=== PATIENT | female | born 1965 | race Caucasian/White ===

== ENCOUNTER 2017-02-16 10:55 | Observation (INO) | payer OTHER, MEDICAID ==
[2017-02-16] MEDS ORDERED: OXYMETAZOLINE 30 ML NASAL SPRAY EACHNARE ONE (11:14)
[2017-02-16] MEDS ORDERED: LR 1,000 ML IV ONE (11:25)
[2017-02-16] MEDS ORDERED: BACITRACIN ZINC 14.2 GM OINTTUBE TP ONE (12:02)
[2017-02-16] MEDS ORDERED: LIDO/EPI 1% **Not for Epidural 20 ML MDV ONE (12:03)
[2017-02-16] MEDS ORDERED: OXYMETAZOLINE 30 ML NASAL SPRAY ONE (12:03)
[2017-02-16] MEDS ORDERED: BUPIVACAINE/EPI 0.25% 30 ML SDV ONE (12:04)
[2017-02-16] MEDS ORDERED: MIDAZOLAM 2 MG/2 ML VIAL IVP ONE (12:16)
--- NOTE | 2017-02-16 12:19 | PDANEPAE ---
ANE History of Present Illness MARY JO s/f UPPP, septoplasty, SMIRT ANE Past Medical History - Cardiovascular History Hx Hypertension: Yes Hx Arrhythmias: No Hx Chest Pain: No Hx Coronary Artery / Peripheral Vascular Disease: No Hx CHF / Valvular Disease: No Hx Palpitations: No Cardiovascular History Comment: mi 02/2015. dvt following knee surgery - Pulmonary History Hx Asthma/Reactive Airway Disease: Yes Hx Recent Upper Respiratory Infection: No Hx Oxygen in Use at Home: No O2 in Use at Home (L/minute): 2l at noc Hx Sleep Apnea: Yes Sleep Apnea Screening Result - Last Documented: Positive Pulmonary History Comment: asthma recent december 2016 ED visit. anaphylactic allergies. mary jo positive- uses o2- unable to use cpap d/t allergies. pe following knee surgery - Neurologic History Hx Cerebrovascular Accident: No Hx Seizures: No Hx Dementia: No - Endocrine History Hx Diabetes: Yes Endocrine History Comment: type 2. hypothyroidism - Renal History Hx Renal Disorders: No - Liver History Hx Hepatic Disorders: No - Neurological & Psychiatric Hx Hx Neurological and Psychiatric Disorders: Yes Neurological / Psychiatric History Comment: anxiety. depression. poss. bipolar - Cancer History Hx Cancer: No - Congenital Disorder History Hx Congenital Disorders: No - GI History Hx Gastrointestinal Disorders: Yes Gastrointestinal History Comment: GERD - Other Health History Other Health History: wears glasses. multiple hospitalizations for anaphylaxis from allergies last one being 12/31-01/03/16 - Chronic Pain History Chronic Pain: Yes (left knee) - Surgical History Prior Surgeries: left tka 2013. jaw surgery. sinus surgery. x2. irasema. uterine ablation. anal fissure. knee surgery x6. back surgery l5-s1 x2 ANE Review of Systems - Exercise capacity METS (RN): 3 METS (ekg okay) ANE Patient History - Allergies Allergies/Adverse Reactions: chlorhexidine Allergy (Severe, Verified 01/26/17 15:32) TESTED ALLERGIC silicone [Silicone] Allergy (Severe, Verified 01/26/17 15:32) FACE SWELLING/ITCY/REDNESS spinach Allergy (Severe, Verified 01/26/17 15:32) Unknown strawberry Allergy (Severe, Verified 01/26/17 15:32) Anaphylaxis turkey Allergy (Severe, Verified 01/26/17 15:32) Unknown Cephalosporins Allergy (Intermediate, Verified 01/26/17 15:32) HIVES,SWELLING Penicillins Allergy (Intermediate, Verified 01/26/17 15:32) HIVES,SWELLING povidone-iodine [From Betadine] Allergy (Intermediate, Verified 01/26/17 15:32) TESTED POSITIVE FOR ALLERGY soap [From Betadine] Allergy (Intermediate, Verified 01/26/17 15:32) TESTED POSITIVE FOR ALLERGY Sulfa (Sulfonamide Antibiotics) Allergy (Intermediate, Verified 01/26/17 15:32) HIVES,SWELLING vancomycin [Vancomycin] Allergy (Intermediate, Verified 01/26/17 15:32) REDNESS latex [Latex] Allergy (Mild, Verified 01/26/17 15:32) ITCHY SKIN adhesive tape Allergy (Verified 01/26/17 15:32) RED/ITCHY SKIN almond Allergy (Verified 01/26/17 15:32) clindamycin Allergy (Verified 01/26/17 15:32) Anaphylaxis Insulins Allergy (Verified 01/26/17 15:41) Other-Enter Comments shellfish derived Allergy (Verified 01/27/17 14:22) HAND PAINT CREW SUPERVISOR Allergy (Intermediate, Uncoded 07/09/13 17:31) SMELL CAUSES ASTHMA SX ENVIRONMENTAL Allergy (Mild, Uncoded 07/09/13 17:31) NASAL CONGESTION MOORE Allergy (Unknown, Uncoded 07/09/13 17:31) STERI STRIPS Allergy (Unknown, Uncoded 07/09/13 17:31) TESTED POSITIVE FOR ALLERGY cleaning products Allergy (Uncoded 01/26/17 15:32) cologne Allergy (Uncoded 01/26/17 15:32) perfumes Allergy (Uncoded 01/26/17 15:32) - Home Medications Home Medications: Atorvastatin Calcium [Lipitor 40 mg (*)] 40 mg PO HS 01/01/16 [Last Taken ] Cetirizine [ZyrTEC 10 mg (*)] 10 mg PO BID 01/01/16 [Last Taken 02/15/17 21:00] Insulin Glargine [Lantus 100 UNITS/ML (*)] 50 units SQ HS 01/01/16 [Last Taken 02/15/17] Metformin HCl [Metformin 1000 mg] 1,000 mg PO BIDMEAL 01/01/16 [Last Taken 02/14 18:00] Ranitidine HCl [Zantac] 300 mg PO HS 01/01/16 [Last Taken 02/15/17] Albuterol [Proventil Inhaler HFA (*)] 1 - 2 puffs IH DAILY PRN 01/27/17 [Last Taken Unknown] Aspirin [Aspirin 81mg (*)] 81 mg PO DAILY 01/27/17 [Last Taken 02/09/17] Carvedilol [Coreg (*)] 3.125 mg PO BIDMEAL 01/27/17 [Last Taken 02/16/17] Cholecalciferol Vit D3 [Vitamin D3 (*)] 5,000 units PO DAILY 01/27/17 [Last Taken 02/09/17] Dulaglutide [Trulicity] 0.75 mg SQ TU 01/27/17 [Last Taken 02/15/17] EPINEPHrine [Epipen 0.3 MG] 0.3 mg IM ONCE PRN 01/27/17 [Last Taken Unknown] Furosemide [Lasix 40 MG (*)] 40 mg PO DAILY PRN 01/27/17 [Last Taken Unknown] Levothyroxine [Synthroid 50 mcg (*)] 50 mcg PO DAILY06 01/27/17 [Last Taken 02/24] QUEtiapine FUMARATE [Seroquel 100 mg (*)] 150 mg PO HS 01/27/17 [Last Taken 02/24] hydrOXYzine HCL [Vistaril] 75 mg PO HS 01/27/17 [Last Taken 02/15/17] Albuterol [Proventil Neb] 3 ml IH QID PRN 02/16/17 [Last Taken Unknown] Citalopram Hydrobromide [celeXA 10 MG] 10 mg PO HS 02/16/17 [Last Taken 02/15/17 ] Fluticasone/Salmeterol [Advair Hfa 115-21 Mcg Inhaler] 2 puffs IH BID 02/16/17 [ Last Taken 02/16/17] - NPO status NPO Since - Liquids (Date): 02/15/17 NPO Since - Liquids (Time): 21:00 NPO Since - Solids (Date): 02/15/17 NPO Since - Solids (Time): 20:00 - Anes Hx Anes Hx: no prior problems - Smoking Hx Smoking Status: Never smoked - Alcohol Use Alcohol Use: None - Family Anes Hx Family Anes Hx: none Family Hx Anesthesia Complications: na- adopted ANE Labs/Vital Signs - Vital Signs Blood Pressure: 120/86 Heart Rate: 84 Respiratory Rate: 20 O2 Sat (%): 92 Height: 160.02 cm Weight: 117.934 kg ANE Physical Exam - Airway Neck exam: FROM Mallampati Score: Class 3 Mouth exam: normal dental/mouth exam - Pulmonary Pulmonary: no respiratory distress - Cardiovascular Cardiovascular: regular rate and rhythym - ASA Status ASA Status: III (obesity, htn, rad, mary jo) ANE Anesthesia Plan Anesthesia Plan: general endotracheal anesthesia (r/b/a explained, agrees to proceed)
[2017-02-16] MEDS ORDERED: fentaNYL 100 MCG/2 ML INJ ONE ×3 (12:28→15:03)
[2017-02-16] MEDS ORDERED: REMIFENTANIL HCL 1 MG VIAL ONE (12:28)
[2017-02-16] MEDS ORDERED: PROPOFOL/EMULSION 500 MG/50 ML BOTTLE IV ONE (12:28)
[2017-02-16] MEDS ORDERED: LIDOCAINE HCL 160 MG/4 ML LTA KIT TP ONE (12:29)
[2017-02-16] MEDS ORDERED: ONDANSETRON 4 MG/2 ML VIAL ONE (12:29)
[2017-02-16] MEDS ORDERED: LIDOCAINE 2% 100 MG/5 ML SYR ONE (12:29)
[2017-02-16] MEDS ORDERED: DEXAMETHASONE 4 MG/ML VIAL ONE ×2 (12:29)
[2017-02-16] MEDS ORDERED: PHENYLEPHRINE HCL 100 MCG/ML SYR ONE (12:46)
[2017-02-16] MEDS ORDERED: LIDOCAINE 1% 2 ML INJ ONE (13:08)
[2017-02-16] MEDS ORDERED: CEFAZOLIN 2 GM/DEXTROSE/100 ML BAG IV ONE (13:08)
[2017-02-16] MEDS ORDERED: PROPOFOL 200 MG/20 ML VIAL ONE (14:08)
[2017-02-16] MEDS ORDERED: HYDROCODONE/APAP 5/325 TAB PO PRN (14:22)
[2017-02-16] MEDS ORDERED: OXYCODONE/APAP 5/325 TAB PO PRN (14:22)
[2017-02-16] MEDS ORDERED: LR 500 ML IV PRN (14:22)
[2017-02-16] MEDS ORDERED: ALBUTEROL 3 ML DEYVIAL IH PRN ×2 (14:22→17:17)
[2017-02-16] MEDS ORDERED: ACETAMINOPHEN 500 MG TAB PO PRN (14:22)
[2017-02-16] MEDS ORDERED: LABETALOL HCL 50 MG/10 ML SYR IVP PRN (14:22)
[2017-02-16] MEDS ORDERED: MEPERIDINE 25 MG/ML SYR IVP PRN (14:22)
[2017-02-16] MEDS ORDERED: DEXAMETHASONE 4 MG/ML VIAL IVP PRN (14:22)
[2017-02-16] MEDS ORDERED: NALOXONE HCL 0.4 MG/ML INJ IVP PRN (14:22)
[2017-02-16] MEDS ORDERED: METOCLOPRAMIDE 10 MG/2 ML VIAL IVP PRN (14:22)
[2017-02-16] MEDS ORDERED: PROMETHAZINE HCL 25 MG/ML INJ IVP PRN (14:22)
[2017-02-16] MEDS ORDERED: ONDANSETRON 4 MG/2 ML VIAL IVP PRN (14:22)
--- NOTE | 2017-02-16 14:31 | POSTOPPROG ---
Post Op Note Date of Operation: 02/16/17 Surgeon: Arpan Feliciano Anesthesiologist: Toro Anesthesia: GET(General Endotracheal) Pre-op Diagnosis: MARY JO Post-op Diagnosis: MARY JO Indication: MARY JO Procedure: BOT & turb reduction, UPPP, tonsils Findings: BOT hypertrohpy, inf turb hypert., long soft palate, gr 2+ tonsils Inf/Abcess present in the surg proc area at time of surgery?: No Depth: Deep Incisional (Fascial) EBL: Minimal Complications: NONE Specimen(s): R & L tonsils
[2017-02-16] MEDS ORDERED: OXYMETAZOLINE 30 ML NASAL SPRAY EACHNARE PRN (14:32)
[2017-02-16] MEDS ORDERED: HYDROmorphONE/DILAUDID 1 MG/ML SYR ONE (14:52)
[2017-02-16] MEDS: fentaNYL 100 MCG/2 ML INJ IVP PRN ×5 (14:55→15:48)
[2017-02-16] MEDS ORDERED: ALBUTEROL 3 ML DEYVIAL ONE (14:58)
--- NOTE | 2017-02-16 15:03 | POSTANESTH ---
Post Anesthetic Evaluation Cardiovascular Status: Normal, Stable Respiratory Status: Normal, Stable, Similar to Pre-op Cond., Tx Decrease in SpO2 (chronic hypoxia, home O2) Level of Consciousness/Mental Status: Can Participate in Eval, Mildly Sleepy, Arousable Pain Control: Adequate, Prn Tx Ordered Nausea/Vomiting Control: Adequate, Prn Tx Ordered Complications Possibly Related to Anesthesia: None Noted
[2017-02-16] MEDS: D5W LR 1,000 ML IV SCH (16:53)
[2017-02-16] MEDS ORDERED: ALBUTEROL 200 PUFFS/18 GM MDI IH PRN (17:17)
[2017-02-16] MEDS ORDERED: FUROSEMIDE 40 MG TAB PO PRN (17:17)
[2017-02-16] MEDS: CARVEDILOL 3.125 MG TAB PO SCH (17:46)
--- NOTE | 2017-02-16 20:31 | GCON ---
[f rep st] CONSULTATION CONSULTATION DATE OF CONSULTATION: 02/16/2017 REFERRING PHYSICIAN: Arpan Feliciano MD REASON FOR CONSULTATION: Multiple medical management in the postoperative setting. HISTORY OF PRESENT ILLNESS: This is a 52-year-old female, who is postoperative day 0 uvulopalatopha ryngoplasty or UPPP, lingual tonsillectomy, and nasal turbinate reduction as well as a base of tongu e resection for obstructive sleep apnea who I have been asked to see for management of multiple [facility] problems. I have cared for the patient in the past when she was hospitalized in December of 2015 for anaphylactic reaction. Apparently the patient has many allergies including chlorhexidine, silicone, spinach, str awberries, turkey, cephalosporins, penicillin, Betadine, soap, sulfa, vancomycin, latex, tape, almon ds, clindamycin, insulin, selfish, hand scudding inspector, environmental allergies, pulliam, cologne, perfumes. During the time of my exam, the patient denies any stridor or significant shortness of breath. Adarsh waterman does report mild to moderate pain in her mouth and nose. She denies any fevers or chills. She de nies any chest pain. She denies any nausea or vomiting. She denies any urinary complaints. PAST MEDICAL HISTORY: 1. Hospitalization in December of 2015 for anaphylactic shock. 2. Severe allergic disorder. 3. Asthma. 4. History of DC. 5. GERD. 6. Hyperlipidemia. 7. Hypertension. 8. Obstructive sleep apnea. HOME MEDICATIONS: Reviewed refer to [facility] for details. ALLERGIES: Refer to [facility] for her extensive list. SOCIAL HISTORY: She denies any alcohol, tobacco, or illicit drug use. FAMILY HISTORY: Remarkable for allergies as well as type 1 diabetes in her brother and type 2 diabe ray in her mother. REVIEW OF SYSTEMS: Comprehensive 10-point review of systems was done and is negative, except for as mentioned in the HPI. PHYSICAL EXAM: VITAL SIGNS: Blood pressure 159/103, pulse of 93, respiratory rate 16, O2 saturatio n 91% on 7 L. Temperature afebrile. GENERAL: No acute distress. HEAD: Normocephalic, atraumatic . EYES: PERRLA. Sclerae anicteric. MOUTH: Moist mucous membranes. She does have nasal packing in place. NECK: Supple. There is some swelling of the anterior neck most likely due to her surger y. PULMONARY: Lungs are clear without wheezes, rales, or stridor. CARDIOVASCULAR: S1, S2. No JVD . No lower extremity edema. ABDOMEN: Soft, nontender, nondistended. No guarding or rebound tende rness. Normoactive bowel sounds. EXTREMITIES: No clubbing or cyanosis. NEURO: Cranial nerves 2- 12 grossly intact. No focal motor or sensory deficits. SKIN: Clear without rashes. DIAGNOSTICS: Blood work from 01/28/2017: Sodium 141, potassium 4.2, chloride 105, CO2 23, BUN 9, c reatinine 0.7, glucose 89. Operative note from Dr. Arpan Feliciano was reviewed. ASSESSMENT AND PLAN: This is a 52-year-old female, status post you uvulopalatopharyngoplasty (UP3), base of tongue resection, lingual tonsillectomy, nasal turbinate reduction by Dr. Arpan Feliciano on who I have been asked to see for postoperative medical management of: 1. History of severe allergic disorder with previous hospitalizations for anaphylactic shock. a. Plan: Will attempt to avoid latex, hand scudding inspector and all of her allergens. She should be clos beltran monitored on continuous pulse oximetry as is being done. 2. History of type 2 diabetes mellitus. a. Plan: Agree with checking blood sugars a.c. and HS. Her home dose of glargine has been ordered as well as metformin. The patient will also be given correctional insulin as indicated in the post operative setting to keep blood sugars less than 200. 3. History of hypertension. Currently poorly controlled most likely due to postoperative pain. a. Plan: The patient is currently on Coreg 3.125 mg p.o. twice daily which will be continued. If her blood pressure continues to elevate will consider increasing her Coreg up to 6.25 mg twice daily . 4. History of coronary artery disease. a. Plan: The patient will be closely monitored for signs symptoms of ACS. Currently she is chest pain-free and appears to be doing well. Thank you for allowing me to participate in the care of the patient. The hospitalist service will c colin to follow along with you through the remainder of her hospital stay. /[id number]/MODL
[2017-02-16] MEDS ORDERED: FAMOTIDINE 20 MG TAB PO SCH (21:00)
[2017-02-16] MEDS ORDERED: CITALOPRAM 20 MG TAB PO SCH (21:00)
[2017-02-16] MEDS ORDERED: QUEtiapine FUMARATE 100 MG TAB PO SCH (21:00)
[2017-02-16] MEDS ORDERED: hydrOXYzine HCL 50 MG TAB PO SCH (21:00)
[2017-02-16] MEDS ORDERED: INSULIN GLARGINE 100 UNITS/ML SYRINGE SC SCH (21:00)
[2017-02-16] MEDS: HEPARIN 5,000 UNIT/0.5 ML SYR SC SCH (21:34)
[2017-02-16] MEDS: metFORMIN HCL 500 MG TAB PO SCH (22:01)
[2017-02-16] MEDS: Fluticasone/Salmeterol [Advair Hfa 115-21 Mcg Inhaler] IH SCH (22:02)
[2017-02-16] MEDS: CETIRIZINE 10 MG TAB PO SCH (22:02)
[2017-02-17] MEDS: D5W LR 1,000 ML IV SCH (03:04)
[2017-02-17] MEDS ORDERED: LEVOTHYROXINE 50 MCG TAB PO SCH (06:00)
[2017-02-17] MEDS: HEPARIN 5,000 UNIT/0.5 ML SYR SC SCH ×2 (06:18→14:15)
--- NOTE | 2017-02-17 07:07 | SOAPPROG ---
SOAP Progress Note Assessment/Plan: Assessment: s/p 02/16/17 UPPP, lingual tonsillectomy, and inferior turbinate reduction. Multiple comorbidities well managed by hospitalist. Discomfort/pain is commensurate with surgery. Good post op findings. Plan: - Wean O2 for sats >89%. Uses home O2 at night. Continue this. - OK for home today. - Continue liquid diet and may advance to pureed and soft as tolerated. - Follow up in [address] Feliciano, ENT. Call for appt: [phone] - See printed discharge instruction sheet. 02/17/17 07:03 Subjective: Complaints of intermittent bloody ooze from nose. Complaints of throat pain. Objective: Vital Signs Temp Pulse Resp BP Pulse Ox 36.5 C 78 18 141/88 H 94 02/17/17 03:13 02/17/17 03:13 02/17/17 03:13 02/17/17 03:13 02/17/17 03:13 02/16/17 02/17/17 02/18/17 05:59 05:59 05:59 Intake Total 510 Balance 510 Physical Exam - Physical Exam General Appearance: WD/WN, alert, no apparent distress, obese EENT: other (No nasal bleeding seen on anterior rhinoscopy. OP/OC surgical sites intact.), No pharyngeal erythema Neck: full range of motion, supple Respiratory: No stridor Skin: normal color, warm/dry Neuro/Psych: no motor/sensory deficits, alert, normal mood/affect ICD10 Worksheet Patient Problems: Problems Problem Status Onset Asthma Acute Severe allergic reaction Acute
[2017-02-17] MEDS: oxyCODONE ORAL SOLUTION 10 MG/0.5 ML UDSYR PO PRN ×2 (08:02→13:10)
[2017-02-17] MEDS: Fluticasone/Salmeterol [Advair Hfa 115-21 Mcg Inhaler] IH SCH (08:42)
[2017-02-17] MEDS: CARVEDILOL 3.125 MG TAB PO SCH (08:55)
[2017-02-17] MEDS: CETIRIZINE 10 MG TAB PO SCH (09:05)
[2017-02-17] MEDS: metFORMIN HCL 500 MG TAB PO SCH (09:05)
[2017-02-17] MEDS ORDERED: SUMAtriptan 25 MG TAB PO ONE (09:36)
[2017-02-17] MEDS ORDERED: LIDOCAINE 2% VISCOUS 15 ML UDCUP PO PRN (09:36)
--- NOTE | 2017-02-17 09:55 | HOSPPROG ---
Hospitalist Progress Note Assessment/Plan: Assessment: 52 yo F p/w UP3 surgery c/b post-op pain, diabetic mgmt Plan: 1. Oral pain. Acute, 2/2 surgery, POD#1, pain is as anticipated following this procedure - patient receiving roxanol PRN, continue at home, Rx reconciled for DC - add oral viscous lidocaine, patient denies any prior rxn, Rx reconciled for DC - stay on liq senokot while using roxanol - avoid oversedation 2. DM2. On lantus/metformin/gliptide at baseline - counseled patient that she should hold her metformin and halve her dosage of lantus to 25u tonight, increasing her lantus by 5u nightly until she is back up to regular dosage (50u) and then restart metformin, to avoid hypoglycemia in the setting of anticipated [id number] PO intake 2/2 pain 3. Hypoxia. 2/2 combination of suspected atelectasis + OHS + MARY JO, resolves to 93 % on room air when awake and inspiring deeply - not pathological, will trigger normal breaths so long as she is not oversedated on opiates - low dose roxanol advised - IS recommended - home o2 nocturnally, and during day if she is sleeping - does not require further w/u at this time Patient is safe to discharge home from a medical standpoint; PRN Rx reconciled, and diabetic agents adjusted as well. Subjective: counseled patient regarding post-op pain mgmt, diabetic Rx mgmt, has ongoing throat pain and headache Objective: Vital Signs Temp Pulse Resp BP Pulse Ox 37.0 C 85 16 138/83 H 90 L 02/17/17 07:44 02/17/17 08:43 02/17/17 08:43 02/17/17 07:44 02/17/17 08:43 02/16/17 02/17/17 02/18/17 05:59 05:59 05:59 Intake Total 510 Balance 510 - Time Spent With Patient Time Spent with Patient: greater than 35 minutes Time Spent with Patient: Greater than 35 minutes spent on this patients care, greater than 50% of time spent counseling, educating, and coordinating care regarding the above mentioned plan. - Physical Exam Constitutional: chronically ill appearing, obese, uncomfortable, No not in pain (in pain) Cardiovascular: regular rate and rhythym, no murmur, rub, or gallop, other ( distant heart sounds) Respiratory: no respiratory distress, no rales or rhonchi, clear to auscultation Gastrointestinal: normoactive bowel sounds, soft, non-tender abdomen, no palpable masses Psychiatric: anxious, flat affect, other (arousable), No agitated ICD10 Worksheet Patient Problems: Problems Problem Status Onset Severe allergic reaction Acute Asthma Acute
--- NOTE | 2017-02-17 11:01 | CPEKG ---
Heart Rate: 76 RR Interval: 789 P-R Interval: 156 QRSD Interval: 88 QT Interval: 412 QTC Interval: 464 P Bethesda: 59 QRS Bethesda: 28 T Wave Bet[place]da: 10 EKG Severity - NORMAL ECG - EKG Impression: SINUS RHYTHM Electronically Signed By: Sreedhar Mason 18-Feb-2017 07:23:38
[2017-02-17 11:53] VITALS: BP 128/86; PULSE 74; RESP 28; TEMP 97.6; O2SAT 94
[2017-02-22] MEDS ORDERED: Dulaglutide [Trulicity] 0.75 MG SQ SCH (17:17)
== END 2017-02-17 15:45 | disposition home or self-care (01) ==
LOC: FSGY 10:55 → F3E 14:32
PROVIDERS: ADMIT Otolaryngology; ATTEND Otolaryngology
PROC: 09TL4ZZ Resection of Nasal Turbinate, Percutaneous Endoscopic Approach (ICD-10-PCS; principal; 2017-02-16 12:30)
PROC: 0CB7XZX Excision of Tongue, External Approach, Diagnostic (ICD-10-PCS; principal; 2017-02-16 12:30)
PROC: 0CS30ZZ Reposition Soft Palate, Open Approach (ICD-10-PCS; principal; 2017-02-16 12:30)
PROC: 0CTPXZZ Resection of Tonsils, External Approach (ICD-10-PCS; principal; 2017-02-16 12:30)
DX: G47.33 Obstructive sleep apnea (adult) (pediatric) (principal); J03.90 Acute tonsillitis, unspecified; R07.9 Chest pain, unspecified; R09.02 Hypoxemia; J45.909 Unspecified asthma, uncomplicated; K21.9 Gastro-esophageal reflux disease without esophagitis; E78.5 Hyperlipidemia, unspecified; I10 Essential (primary) hypertension; I25.2 Old myocardial infarction; E11.9 Type 2 diabetes mellitus without complications; I25.10 Atherosclerotic heart disease of native coronary artery without angina pectoris; E66.9 Obesity, unspecified; Z68.42 Body mass index [BMI] 45.0-49.9, adult; Z91.048 Other nonmedicinal substance allergy status; Z96.662 Presence of left artificial ankle joint; Z88.0 Allergy status to penicillin
CPT/HCPCS: 30140; 41120; 42145; 93005; G0378; J0690; J1100; J1170; J1815; J2001; J2250; J2370; J2405; J2704; J3010